=== PATIENT | male | born 1985 | race Caucasian/White ===

== ENCOUNTER 2020-01-29 19:32 | Emergency (ER) | payer SELFPAY ==
[2020-01-29] MEDS ORDERED: Ondansetron 4 MG/2 ML SDV IVPUSH ONE (19:37)
[2020-01-29] MEDS ORDERED: Sodium Chloride 0.9% 1,000 ML IV ONE (19:37)
[2020-01-29] MEDS ORDERED: LORazepam 2 MG/ML SDV IVPUSH ONE (19:40)
--- NOTE | 2020-01-29 19:43 | EDM.PDOC ---
ED HPI GENERAL MEDICAL PROBLEM - General Chief Complaint: Drug or Alcohol Abuse Stated Complaint: OVERDOSE Time Seen by Provider: 01/29/20 19:36 Source of Information: Reports: Patient History Limitations: Reports: No Limitations, Other (Patient is voluntarily not speaking.) - History of Present Illness INITIAL COMMENTS - FREE TEXT/NARRATIVE: 34-year-old gentleman presents to the emergency room chief complaint of being found altered after using IV heroin. Patient was given a total of 8 of Narcan and became more responsive. Patient then became agitated in the ambulance and was brought to the emergency room. On evaluation patient is awake and alert. Severity: Moderate - Related Data Allergies Allergy/AdvReac Type Severity Reaction Status Date / Time Unable to Assess Allergy Unverified 01/29/20 19:43 Home Meds: Home Meds . [Unable to Verify Home Med List] 01/29/20 [History] ED ROS GENERAL - Review of Systems Review Of Systems: See Below Constitutional: Reports: No Symptoms HEENT: Reports: No Symptoms Respiratory: Reports: No Symptoms Cardiovascular: Reports: No Symptoms Endocrine: Reports: No Symptoms GI/Abdominal: Reports: No Symptoms : Reports: No Symptoms - Physical Exam Exam: See Below Exam Limited By: No Limitations General Appearance: Alert, WD/WN, No Apparent Distress Eye Exam: Bilateral Eye: Normal Fundi, Normal Inspection Ears: Normal External Exam, Normal Canal, Hearing Grossly Normal, Normal TMs Nose: Normal Inspection, Normal Mucosa, No Blood Throat/Mouth: Normal Inspection, Normal Lips, Normal Teeth, Normal Oropharynx, Normal Voice Head Exam: Atraumatic, Normocephalic Neck: Normal Inspection, Supple, Non-Tender, Full Range of Motion Respiratory/Chest: No Respiratory Distress, Lungs Clear, Normal Breath Sounds, No Accessory Muscle Use, Chest Non-Tender Cardiovascular: Normal Peripheral Pulses, Regular Rate, Rhythm, No Edema, No Gallop, No JVD, No Murmur, No Rub GI/Abdominal: Normal Bowel Sounds, Soft, Non-Tender, No Organomegaly, No Distention, No Abnormal Bruit, No Mass (Male) Exam: Deferred Rectal (Males) Exam: Deferred Neuro Exam (Abbreviated): Alert, Oriented, CN II-XII Intact, Normal Cognition, Normal Gait, Normal Reflexes, No Motor/Sensory Deficits Back Exam: Normal Inspection, Full Range of Motion, NT Extremities: Normal Inspection, Normal Range of Motion, Non-Tender, No Pedal Edema, Normal Capillary Refill Psychiatric: Normal Affect, Normal Mood Skin Exam: Warm, Dry, Intact, Normal Color, No Rash Course - Vital Signs Text/Narrative:: 34-year-old gentleman presents to the emergency room after taking opiates. Patient was given Narcan and became arousable. Patient also had alcohol on board was brought in by police. Patient initially not talking to staring at everybody but response staff. Patient then started urinating on staff members. Patient has been stable the entire time and will be transferred to [facility]. Last Recorded V/S: Last Vital Signs Temp 97.6 F 01/29/20 19:36 Pulse 120 H 01/29/20 19:36 Resp 18 01/29/20 19:36 BP 142/77 H 01/29/20 19:36 Pulse Ox 94 L 01/29/20 19:36 - Orders/Labs/Meds Labs: Laboratory Tests 01/29/20 01/29/20 01/29/20 Range/Units 19:33 19:33 20:07 WBC 10.21 (4.0-11.0) K/uL RBC 5.82 (4.50-5.90) M/uL Hgb 17.8 H (13.0-17.0) g/dL Hct 49.9 (38.0-50.0) % MCV 85.7 (80.0-98.0) fL MCH 30.6 (27.0-32.0) pg MCHC 35.7 (31.0-37.0) g/dL RDW Std Deviation 39.5 (28.0-62.0) fl RDW Coeff of Ginger 13 (11.0-15.0) % Plt Count 306 (150-400) K/uL MPV 10.00 (7.40-12.00) fL Neut % (Auto) 58.3 (48.0-80.0) % Lymph % (Auto) 29.4 (16.0-40.0) % Angelina % (Auto) 9.1 (0.0-15.0) % Eos % (Auto) 3.0 (0.0-7.0) % Baso % (Auto) 0.2 (0.0-1.5) % Neut # (Auto) 6.0 H (1.4-5.7) K/uL Lymph # (Auto) 3.0 H (0.6-2.4) K/uL Angelina # (Auto) 0.9 H (0.0-0.8) K/uL Eos # (Auto) 0.3 (0.0-0.7) K/uL Baso # (Auto) 0.0 (0.0-0.1) K/uL Nucleated RBC % 0.0 /100WBC Nucleated RBCs # 0 K/uL Sodium 139 (136-148) mmol/L Potassium 3.7 (3.5-5.1) mmol/L Chloride 102 (98-107) mmol/L Carbon Dioxide 23.4 (21.0-32.0) mmol/L BUN 11 (7.0-18.0) mg/dL Creatinine 0.9 (0.8-1.3) mg/dL Est Cr Clr Drug Dosing TNP Estimated GFR (MDRD) > 60.0 ml/min Glucose 124 H (74-106) mg/dL Calcium 8.4 L (8.5-10.1) mg/dL Total Bilirubin 0.4 (0.2-1.0) mg/dL AST 23 (15-37) IU/L ALT 48 (14-63) IU/L Alkaline Phosphatase 87 (46-116) U/L Troponin I < 0.050 (0.000-0.056) ng/mL Total Protein 7.6 (6.4-8.2) g/dL Albumin 4.1 (3.4-5.0) g/dL Globulin 3.5 (2.6-4.0) g/dL Albumin/Globulin Ratio 1.2 (0.9-1.6) Urine Opiates Screen NEGATIVE (NEGATIVE) Ur Oxycodone Screen NEGATIVE (NEGATIVE) Urine Methadone Screen NEGATIVE (NEGATIVE) Ur Barbiturates Screen NEGATIVE (NEGATIVE) Ur Phencyclidine Scrn NEGATIVE (NEGATIVE) Ur Amphetamine Screen NEGATIVE (NEGATIVE) U Methamphetamines Scrn NEGATIVE (NEGATIVE) U Benzodiazepines Scrn NEGATIVE (NEGATIVE) U Cocaine Metab Screen NEGATIVE (NEGATIVE) U Marijuana (THC) Screen NEGATIVE (NEGATIVE) Ethyl Alcohol 258 mg/dL Meds: Medications Discontinued Medications Generic Name Dose Route Start Last Admin Trade Name Freq PRN Reason Stop Dose Admin Sodium Chloride 1,000 mls @ 1,000 mls/hr 01/29/20 19:37 01/29/20 19:44 Normal Saline IV 01/29/20 20:36 1,000 mls/hr .Bolus ONE Administration Lorazepam 1 mg 01/29/20 19:40 01/29/20 20:44 Ativan IVPUSH 01/29/20 19:41 Not Given ONETIME ONE Ondansetron HCl 4 mg 01/29/20 19:37 01/29/20 19:44 Zofran IVPUSH 01/29/20 19:38 4 mg ONETIME ONE Administration Departure - Departure Time of Disposition: 21:46 Disposition: Home, Self-Care 01 Condition: Good Clinical Impression: Drug abuse, Alcohol abuse, Opiate abuse, episodic - Discharge Information Instructions: Opioid Use Disorder, Alcohol Intoxication, [id number] Forms: ED Department Discharge Additional Instructions: He should refrain from illicit drugs Patient is stable for incarceration Sepsis Event Note - Focused Exam Vital Signs: Vital Signs Temp Pulse Resp BP Pulse Ox 01/29/20 19:36 97.6 F 120 H 18 142/77 H 94 L Date Exam was Performed: 01/29/20 Time Exam was Performed: 21:42
[2020-01-29 20:03] LABS: BLOOD UREA NITROGEN,BUN 11 mg/dL (7.0-18.0); CARBON DIOXIDE,CO2 23.4 mmol/L (21.0-32.0); CHLORIDE,CL 102 mmol/L (98-107); GLUCOSE RANDOM 124 mg/dL (74-106); POTASSIUM,K 3.7 mmol/L (3.5-5.1); SODIUM,NA 139 mmol/L (136-148)
--- NOTE | 2020-01-29 20:19 | CR ---
INDICATION: Chest pain. TECHNIQUE: Chest 1 view COMPARISON: None. FINDINGS: Small patchy opacity in the medial right lower lung may represent atelectasis or infiltrate. No pleural effusion or pneumothorax. Normal heart size and pulmonary vascularity. IMPRESSION: Patchy opacity in the right lower lung may represent atelectasis or infiltrate. Dictated by Lois Adorno MD @ Jan 29 2020 8:15PM Signed by Dr. Lois Adorno @ Jan 29 2020 8:17PM
== END 2020-01-29 22:05 ==
LOC: MW.ED 19:32
DX: F10.129 Alcohol abuse with intoxication, unspecified (principal); F11.10 Opioid abuse, uncomplicated; Y90.8 Blood alcohol level of 240 mg/100 ml or more
CPT/HCPCS: 36415; 71045; 80053; 80305; 80307; 84484; 85025; 93005; 96361; 96374; 99285; J2405; J7030; 99282